=== PATIENT | male | born 1985 | race Caucasian/White ===

== ENCOUNTER 2025-04-18 08:58 | Emergency (ER) | payer SELFPAY ==
[2025-04-18 09:12] VITALS: BP 139/85
--- NOTE | 2025-04-18 09:49 | ED.GENMED ---
History of Present Illness
General
Chief Complaint: Flank Pain
Time Seen by Provider: 04/18/25 09:48
History of Present Illness
History of Present Illness:
40-year-old male with no significant past medical history presents to the emergency department for evaluation of right low back/right flank pain for the past week. Pain is constant, no colicky nature to it, associated with nocturnal fevers over the
past 3 to 4 days. He does lift frequent heavy objects at work but denies acute pain. Denies any lower extremity paresthesias. No URI symptoms, chest pain, nausea, vomiting, or lower urinary tract voiding symptoms.
Past History
Past History
ED Past Medical History: None
ED Past Surgical History: None
Social History
Tobacco: Non-smoker
Alcohol: None
Drug: None
Review of Systems
Review of Systems
Allergies reviewed?: Yes
All Other Systems: ROS reviewed and negative except as documented in HPI and ROS
Phy Exam
Physical Exam
Physical Exam:
GEN: Well appearing, NAD, WDWN
HEENT: Oral mucosa moist, no scleral icterus
Cardiac: Regular rate
Lung: No respiratory distress, no tachypnea
Abdomen: Soft, grossly nontender, no masses, no CVA tenderness
MSK: No midline lumbar spine tenderness. Palpable mass to the right lumbar paraspinous muscle tissue just superior to the iliac wing, patient reports known chronic mass in this area however it is tender to palpation
Skin: Good color, no pallor or jaundice, no rashes
Neuro: AO x3, moves all extremities freely
Psych: Calm, cooperative
Course
Orders/Labs/Results
Orders:
Orders
04/18/25 10:17
Ketorolac [Toradol] 15 mg IV NOW STA
04/18/25 10:30
Complete Blood Count/With Diff Urgent
Comprehensive Metabolic Panel Urgent
Urinalysis Reflex To Culture Urgent
Date Specimen was Collected: 04/18/25
Time Specimen was Collected: 10:24
Urine Microscopic Reflex Cult Urgent
04/18/25 11:13
CT Abd/Pel (IV only)-DH only Urgent
Comment:
Reason For Exam: R flank pain, fever
Abnormal Lab Results
04/18/25
10:30
Absolute Lymphs (auto) 0.9 L 10^3/uL
(1.2-3.4)
Absolute Monos (auto) 0.7 H 10^3/uL
(0.1-0.6)
Lymphocytes % 17.5 L %
(20.5-51.1)
Monocytes % 14.1 H %
(1.7-9.3)
Creatinine 0.6 L mg/dL
(0.7-1.3)
Urine Ketones 1+ A
(Negative)
Urine Bacteria (Reflex) Few A
(Negative)
Urine Albumin (Reflex) 1+ A
(Neg - Trace)
04/18/25 10:30
04/18/25 10:30
Vital Signs
Initial and Last Documented VS:
Initial Vital Signs
Temp Pulse Resp BP Pulse Ox
98.4 F 97 16 139/85 98
04/18/25 09:12 04/18/25 09:12 04/18/25 09:12 04/18/25 09:12 04/18/25 09:12
Last Documented Vital Signs
Temp Pulse Resp BP Pulse Ox
98.4 F 88 18 139/88 95
04/18/25 09:12 04/18/25 12:42 04/18/25 12:42 04/18/25 12:42 04/18/25 12:42
MDM/Problems Addressed
MDM/Problems Addressed:
Imaging shows no evidence of acute pathology. I suspect his pain is lumbar radiculopathy/musculoskeletal in origin. No evidence of UTI. Given lack of benefit to NSAIDs will treat with corticosteroids and muscle relaxants. Discussed need for
primary care follow-up
*Pulse Oximetry
SaO2: 98
Oxygen Mode of Delivery: Room air
Patient hypoxic: no
*Critical Care Note
Total Time (30-74mins, 75-104mins- exclusive of procedures): Not Applicable
Update Note
Update Note:
1116: Labs reviewed, grossly unremarkable. Will obtain CT abd/pelv to r/o acute intra-abdominal pathology causing symptoms
ED Attending Note
-
Portions of this chart may have been created with voice recognition software.� Occasional wrong word or��sound alike� substitutions may have occurred due to the inherent limitations of voice recognition software.
Discharge Plan
Departure
Patient Disposition: Home (Routine Discharge)
Date of Disposition: 04/18/25
Time of Disposition: 13:37
Patient with high blood pressure during this ER visit?: No
Discharge Problem:
Low back pain
Instructions: Low back pain - ED (DC)
Prescriptions:
New
methylprednisolone [Medrol (Sam)] 4 mg tablets,dose pack
See Rx Instructions .ROUTE .COMPLEX Qty: 21 0RF
Rx Instructions:
orally per package directions
methocarbamol 750 mg tablet
750 - 1,500 mg PO Q8H Qty: 15 0RF
No Action
amoxicillin-pot clavulanate 875-125 mg tablet
1 tab PO BID Qty: 14 0RF
Referrals:
NONE,* [Family Provider, Internal Medicine]
Interventions
Interventions:
*Risk Screen - Suicide Last Done: 04/18/25 09:12
*General Assessment Last Done: 04/18/25 09:12
*Neglect/Abuse Screening Last Done: 04/18/25 10:22
*ED COVID-19 Vaccine History Last Done: 04/18/25 10:22
*ED Influenza Vaccine History Last Done: 04/18/25 10:22
[facility] Fall Risk Assessment Tool Last Done: 04/18/25 10:22
*Nursing Disposition Last Done: 04/18/25 14:13
PA-Jyfpmj-Yhslzkayiv Assessment Last Done: 04/18/25 10:22
ED-Male Genitourinary Assessment Last Done: 04/18/25 10:22
Discharge Date and Time
Discharge Date/Time: 04/18/25 14:14
Print Language: KHMER
[2025-04-18 10:22] VITALS: BMI 35.3
[2025-04-18] MEDS: TORADOL 15 MG IV (10:37)
[2025-04-18 10:49] LABS: Hematocrit 48.1 % (39.0-52.0); Hemoglobin 16.5 g/dL (13.0-18.0); Mean Corp Hgb Conc. 34.3 g/dL (33.0-37.0); Mean Corpuscular Volume 83.9 fL (80.0-94.0); Nucleated Red Blood Cells % 0 % (-); Platelet Count 171 10^3/uL (130-400); Red Cell Dist. Width 12.2 % (11.5-14.5)
[2025-04-18 11:01] LABS: AST (SGOT) 25 U/L (17-59); Albumin 4.7 g/dl (3.5-5.0); Alkaline Phosphatase 104 U/L (38-126); Blood Urea Nitrogen 10 mg/dl (9-20); Calcium 9.7 mg/dl (8.4-10.2); Carbon Dioxide 28 mmol/L (22-30); Chloride 101 mmol/L (98-107); Estimated Creatinine Clearance > 125 ml/min; Glucose 98 mg/dl (70-99); Potassium 4.2 mmol/L (3.5-5.1); Sodium 135 mmol/L (135-145); Total Protein 7.7 g/dl (6.3-8.2); eGFR > 60.00
[2025-04-18 11:03] LABS: Urine Character Clear (Clear)
[2025-04-18 11:10] LABS: ALT (SGPT) 49 U/L (0-50)
[2025-04-18 11:17] LABS: Urine White Cell 0-2 /HPF (0-5)
[2025-04-18 11:18] LABS: Urine Red Blood Cell 0-2 /HPF (0-2); Urine Squamous Cell 0-2 /LPF (Few)
[2025-04-18 12:42] VITALS: BP 139/88
== END 2025-04-18 14:14 | disposition home or self-care (01) ==
LOC: EMR 08:58
PROVIDERS: Physician Assistant; EMERGENCY PHYSICIAN Emergency Medicine
DX: M54.50 Low back pain, unspecified (principal)
CPT/HCPCS: 99284; 96374; 74177; 80053; 81003; 81015; 85025; Q9967